=== PATIENT | male | born 1980 | race Two or more races ===

== ENCOUNTER 2020-03-03 06:44 | Day surgery (SDC) | payer OTHER ==
[2020-03-03] VITALS (9 sets, daily range): BP systolic 118–135; BP diastolic 69–97
[~2020-03-03] VITALS: Ht 165.1 cm; Wt 70.3 kg
[2020-03-03] MEDS ORDERED: REMICADE10 MG IV (07:12)
[2020-03-03] MEDS ORDERED: WELLBUTRIN SR100 MG ORAL (07:12)
[2020-03-03] MEDS ORDERED: VICODIN HP 10-1 EACH ORAL (07:12)
[2020-03-03] MEDS ORDERED: SULFAZINE500 MG PO (07:12)
[2020-03-03] MEDS ORDERED: MONTELUKAST SOD10 MG ORAL (07:12)
[2020-03-03] MEDS ORDERED: Midazolam 2mg/2ml Inj ONE (07:30)
--- NOTE | 2020-03-03 07:52 | Anethesia Preoperative Eval ---
Anesthesia Pre-op PMH/ROS General Date of Evaluation: Mar 03, 2020 Time of Evaluation: 07:49 Anesthesiologist: Daya ASA Score: ASA 2 Mallampati Score Class I : Soft palate, uvula, fauces, pillars visible Class II: Soft palate, uvula, fauces visible Class III: Soft palate, base of uvula visible Class IV: Only hard plate visible Mallampati Classification: Class II Surgeon: Daniele Diagnosis: Diarrhea Surgical Procedure: Colonoscopy Anesthesia History: none Family History: no anesthesia problems Medications: see eMAR Patient NPO?: Yes Past Medical History Cardiovascular: Denies: HTN, CAD, RI, valve dz, arrhythmia, other Pulmonary: Denies: asthma, COPD, ZANDER, other Gastrointestinal/Genitourinary: Reports: GERD, other - Recurrent diarrhea Neurologic/Psychiatric: Reports: other - chronic pain; Denies: dementia, CVA, depression/anxiety, TIA Endocrine: Denies: DM, hypothyroidism, steroids, other HEENT: Denies: cataract (L), cataract (R), glaucoma, [place] (L), [place] (R), other Hematology/Immune: Denies: anemia, DVT, bleeding disorder, other Musculoskeletal/Integumentary: 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 Exam Physician Exam Last Vital Signs Date Time Temp Pulse Resp B/P (MAP) Pulse Ox O2 Delivery O2 Flow Rate FiO2 03/03/20 07:04 Room Air 03/03/20 07:04 97.4 18 134/89 97 Constitutional: NAD Neurologic: CN 2-12 intact Cardiovascular: RRR, no M/R/G Respiratory: CTA Gastrointestinal: S/NT/ND Airway Exam Mallampati Score: Class II MO: full Neck: flexible ROM: full Teeth: intact Dentures: no upper, no lower Anesthesia Pre-op A/P Risk Assessment & Plan Assessment: ASA 2 Plan: MAc Status Change Before Surgery: No Harman Stapleton MD Mar 03, 2020 07:52
--- NOTE | 2020-03-03 07:52 | Pre-Procedure Note/Attestation ---
Pre-Procedure Note/Attestation Complete Prior to Procedure Planned Procedure: not applicable Procedure Narrative: colon Indications for Procedure Pre-Operative Diagnosis: diarrhea Attestation I attest that I discussed the nature of the procedure; its benefits; risks and complications; and alternatives (and the risks and benefits of such alternatives ), prior to the procedure, with the patient (or the patient's legal workforce services representative). I attest that, if there was a reasonable possibility of needing a blood transfusion, the patient (or the patient's legal workforce services representative) was given the [facility] standardized written summary, pursuant to the Luis Fabens Blood Safety Act ([place] Health and Safety Code # 1645, as amended). I attest that I re-evaluated the patient just prior to the surgery and that there has been no change in the patient's H&P, except as documented below: Myada Isidro MD Mar 03, 2020 07:52
[2020-03-03] MEDS ORDERED: LR 1000ml ONE (08:00)
[2020-03-03] MEDS ORDERED: fentaNYL 100 mcg/2 mL IV ONE (08:00)
--- NOTE | 2020-03-03 08:29 | Immediate Post-Op Evaluation ---
Immediate Post-Op Evalulation Immediate Post-Op Evalulation Procedure: Colonoscopy Date of Evaluation: Mar 03, 2020 Time of Evaluation: 08:28 IV Fluids: 600 Blood Products: none Estimated Blood Loss: none Urinary Output: none Blood Pressure Systolic: 128 Blood Pressure Diastolic: 87 Pulse Rate: 64 Respiratory Rate: 20 O2 Sat by Pulse Oximetry: 99 Temperature (Fahrenheit): 97.6 Pain Score (1-10): 1 Nausea: No Vomiting: No Complications none Patient Status: awake, patent, none Hydration Status: adequate Harman Stapleton MD Mar 03, 2020 08:29
--- NOTE | 2020-03-03 09:28 | 48 Hour Post Anesthesia Eval ---
Post Anesthesia Evaluation Procedure: Colonoscopy Date of Evaluation: Mar 03, 2020 Time of Evaluation: 09:27 Blood Pressure Systolic: 128 0: 76 Pulse Rate: 64 Respiratory Rate: 20 Temperature (Fahrenheit): 97.6 O2 Sat by Pulse Oximetry: 98 Airway: patent Nausea: No Vomiting: No Pain Intensity: 1 Hydration Status: adequate Cardiopulmonary Status: stable Mental Status/LOC: patient returned to baseline Follow-up Care/Observations: n/a Post-Anesthesia Complications: none Follow-up care needed: ready to discharge Harman Stapleton MD Mar 03, 2020 09:28
--- NOTE | 2020-03-04 08:15 | Procedure Note ---
DATE OF PROCEDURE: 03/03/2020 GASTROENTEROLOGY PROCEDURE REPORT PROCEDURE: Colonoscopy with biopsy. SURGEON: Mayda Isidro MD ANESTHESIA: Please see the separate anesthesiologist notes for details. PRE-ENDOSCOPIC DIAGNOSES: Diarrhea, rule out inflammatory bowel disease. POST-ENDOSCOPIC DIAGNOSES: 1. Normal terminal ileum to about 16 centimeters status post random biopsy. 2. Normal colonic mucosa, status post random biopsies of the right colon, left colon, and rectosigmoid colon. 3. Mild to moderate diverticulosis throughout the left colon. DESCRIPTION OF PROCEDURE: The procedure its risks, indications, alternatives, and possible complications were explained to the patient and informed consent was obtained. The patient was then sedated in the left lateral decubitus position and a diagnostic colonoscope was introduced into the rectum after rectal exam was done and advance to the cecum and then the terminal ileum without difficulty. The colonoscope was then gradually withdrawn. The mucosa examined carefully. The examination of the terminal ileal mucosa for about 15 cm did not show any abnormalities. Random biopsies were sent to pathology for review. Likewise, the mucosal lining throughout the colon was normal. Random biopsies of the right colon, left colon, the rectosigmoid colon were sent to the pathology for review. Retroflexed view of the rectum was also unremarkable. There were however left-sided [id number] diverticulosis seen. The colonoscope was removed. The patient was sent to recovery in good condition. COMPLICATIONS: None. ASSESSMENT: There were no visual abnormalities in this examination to explain the patient's diarrhea such as inflammatory bowel disease. However, biopsies will be evaluated to rule out microscopic evidence of disease. RECOMMENDATIONS: 1. Follow up biopsy results. 2. Resume oral diet. 3. Outpatient followup. Thank you for asking me to participate in the care of this patient. Mayda Isidro M.D. DR: Ronald JOB#: [id number] CC: dOilon Rodriguez M.D.; Fax#: [phone] [facility]
--- NOTE | 2020-03-04 22:30 | Endoscopy Procedure Note ---
Endoscopy Procedure Note General Indication for Procedure: diarrhea Procedures Performed: colonoscopy Operative Findings/Diagnosis: see dictation Specimen: yes Pt Tolerated Procedure Well: Yes Estimated Blood Loss: none Anesthesia Anesthesiologist: see report Anesthesia: general, MAC Medications Medication Given: see anesthesia record Inserted Devices Implant(s) used?: No Quality Quality of Bowel Preparation: Excellent Was there any complications?: No GI Core Measures 50 yrs or older w/o bx or poly: Not Applicable 10yrs. F/U recommended: Not Applicable If not recommended, why?: Mayda Isidro MD Mar 04, 2020 22:30
--- NOTE | 2020-03-04 22:40 | Endoscopy Procedure Note ---
Endoscopy Procedure Note General Indication for Procedure: abnorman CT Operative Findings/Diagnosis: see typed dictation Anesthesia Anesthesiologist: SHILOH on monthly scovi Anesthesia: moderate sedation Medications Medication Given: see anesthesia record Inserted Devices Implant(s) used?: No GI Core Measures 50 yrs or older w/o bx or poly: Not Applicable 10yrs. F/U recommended: Not Applicable Mayda Isidro MD Mar 04, 2020 22:40
== END 2020-03-03 09:40 | disposition home or self-care (01) ==
LOC: GAS 06:44
DX: R19.7 Diarrhea, unspecified (principal); K57.90 Diverticulosis of intestine, part unspecified, without perforation or abscess without bleeding; K21.9 Gastro-esophageal reflux disease without esophagitis
CPT/HCPCS: 45380; 94003; J2250; J2704; J3010; J7120; 94150